=== PATIENT | male | born 1970 | race Two or more races ===

== ENCOUNTER 2018-10-05 08:28 | Emergency (ER) | payer OTHER ==
[~2018-10-05] VITALS: Ht 144.8 cm; Wt 74.4 kg
[2018-10-05] MEDS ORDERED: NKM (08:37)
[2018-10-05 08:39] VITALS: BP 126/79
--- NOTE | 2018-10-05 08:42 | NUR ---
ED Nurse Note: Patient walked in to ER due to Rt wrist pain which caused from lifting a heavy object at work yesterday. Patient alert and oriented x4 and ambulatory. skin clean and intact. calm and cooperative. Patient brought work compensation paper. given to JOSH.
--- NOTE | 2018-10-05 08:43 | Emergency Room Report ---
History of Present Illness General Chief Complaint: Upper Extremity Injury Source: Patient Present Illness HPI Patient is a 48-year-old male who presents after increased right-sided wrist pain after lifting a heavy box. 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 He denies any other recent trauma. He denies any prior past medical history. He had not been having any numbness or weakness. Injury occurred yesterday. He denies any fever. He denies any neck or back pain. He denies taking any medications. Allergies: Coded Allergies: No Known Allergies (Unverified , 10/05/18) Patient History Past Medical History: see triage record Reviewed Nursing Documentation: PMH: Agreed; PSxH: Agreed Review of Systems All Other Systems: negative except mentioned in HPI Physical Exam Vital Signs Date Time Temp Pulse Resp B/P (MAP) Pulse Ox O2 Delivery O2 Flow Rate FiO2 10/05/18 08:32 97.9 60 18 126/79 (95) 96 Room Air General Appearance: well appearing, no apparent distress, alert, GCS 15 Head: normocephalic, atraumatic ENT: hearing grossly normal, normal voice Neck: full range of motion, supple Respiratory: chest non-tender, lungs clear, no respiratory distress, speaking full sentences Cardiovascular #1: normal inspection Gastrointestinal: normal inspection, normal bowel sounds, non tender, soft Musculoskeletal: normal inspection, back normal Neurologic: normal inspection, alert, oriented x3, responsive, normal gait Psychiatric: mood/affect normal Skin: no rash Medical Decision Making Last Vital Signs Date Time Temp Pulse Resp B/P (MAP) Pulse Ox O2 Delivery O2 Flow Rate FiO2 10/05/18 08:32 97.9 60 18 126/79 (95) 96 Room Air Alejandro Julio MD Oct 05, 2018 08:43
[2018-10-05] MEDS ORDERED: IBUPROFEN600 MG ORAL (08:47)
--- NOTE | 2018-10-05 08:57 | NUR ---
ED Nurse Note: x-ray at bedside.
--- NOTE | 2018-10-05 09:10 | NUR ---
ED Nurse Note: Souleymane wrap applied on Rt wrist at bedside.
[2018-10-05 09:29] VITALS: BP 128/81
--- NOTE | 2018-10-05 09:30 | NUR ---
ER DISCHARGE NOTE: Patient is cleared to be discharged per ERMD with work compensation papers, pt is aox4, on room air, with stable vital signs. pt was given dc and prescription instructions, pt was able to verbalize understanding, pt id band removed. pt is able to ambulate with steady gait. pt took all belongings.
--- NOTE | 2018-10-05 09:56 | Diagnostic Imaging Report ---
Clinical Indication:Wrist pain from heavy lifting Technique: 3 views of the right wrist Comparison: None Findings: No acute fractures. No dislocations. The joint spaces are preserved bony alignment is normal Impression: Negative
== END 2018-10-05 09:30 | disposition home or self-care (01) ==
LOC: EMR 09:00
DX: M25.531 Pain in right wrist (principal)
CPT/HCPCS: 99283